=== PATIENT | female | born 1975 | race Caucasian/White ===

== ENCOUNTER → 2017-09-17 | Outpatient (CLI) | payer BC ==
--- NOTE | 2017-09-17 13:06 | KCIC ---
Bilateral digital screening mammograms: Reason for examination: Routine screening. History of breast reduction. Comparison is made to previous studies dated back to 05/18/2014. Interpretation was made with the benefit of CAD. The skin and nipples show no abnormalities. No abnormal axillary lymph nodes are seen. The breast parenchyma shows scattered fibroglandular density. (Breast density: Category B.) There continue to be postop changes from breast reduction was some patchy asymmetries again seen. There appears be some fat necrosis at the 2:00 position of the right breast anteriorly. There are no new dominant masses, suspicious calcifications or architectural distortions. A few scattered benign calcifications are present. Impression: Postoperative changes from breast reduction. No evidence of malignancy. Recommend routine screening. BI-RADS category 2: Benign "Our facility is accredited by the [employer] Mammography [employer]." This patient's information has been entered into a reminder system for the patient to be notified with the results of her examination and a target date for the next mammogram. Electronically signed by: Celia Degroot MD (09/17/2017 1:03 PM) [id number]
== END | disposition home or self-care (01) ==
LOC: KCIC MAMMO 08:02
PROVIDERS: ATTEND Obstetrics & Gynecology
DX: Z12.31 Encounter for screening mammogram for malignant neoplasm of breast (principal)
CPT/HCPCS: G0202; 77067

== ENCOUNTER → 2019-03-10 | Outpatient (CLI) | payer BC ==
--- NOTE | 2019-03-10 10:24 | KCIC ---
BILATERAL SCREENING MAMMOGRAM History: Routine screening. History of bilateral breast reduction 2014. Comparison: Bilateral mammogram 09/17/2017 and dating back to 2013. Technique: Routine bilateral digital mammogram views were obtained. Findings: Breast Tissue Density B : There are scattered areas of fibroglandular density. The parenchymal pattern is stable and compatible with the history of reduction mammoplasty. There are no dominant masses, suspicious microcalcifications, or architectural distortion. Interval evolution of fat necrosis right breast 1:00 position at anterior depth. Benign calcifications are noted bilaterally. IMPRESSION: No mammographic evidence of malignancy. Recommend routine screening. BI-RADS category 2: Benign findings. The images were reviewed with computer aided detection. Patient information is entered into the reminder system with a target due date for the next screening mammogram. Mammography is the most sensitive method for finding small breast cancers, but it does not detect them all and is not a substitute for careful clinical examination. A negative mammogram does not negate a clinically suspicious finding and should not result in delay in biopsying a clinically suspicious abnormality. "Our facility is accredited by the [employer] Mammography [employer]." Electronically signed by: Juan Estrada MD (03/10/2019 10:22 AM) [id number]
== END | disposition home or self-care (01) ==
LOC: KCIC MAMMO 07:38
PROVIDERS: ATTEND Obstetrics & Gynecology
DX: Z12.31 Encounter for screening mammogram for malignant neoplasm of breast (principal); N64.1 Fat necrosis of breast; N64.89 Other specified disorders of breast
CPT/HCPCS: 77067

== ENCOUNTER → 2020-03-27 | Outpatient (CLI) | payer BC ==
--- NOTE | 2020-03-27 12:50 | KCIC ---
Bilateral digital screening mammograms: Reason for examination: Routine screening. History of breast reduction. Comparison is made to previous studies dated back to 05/18/2014. Interpretation was made with the benefit of CAD. The skin and nipples show no abnormalities. No abnormal axillary lymph nodes are seen. The breast parenchyma shows scattered fibroglandular density. (Breast density: Category B.) There are postop changes from breast reduction. There is some nodularity laterally in both breasts but especially on the right which probably reflects postoperative surgical changes with some parenchymal scarring. There are no new masses, suspicious calcifications or architectural distortions. Benign calcification is again seen. Impression: Postoperative changes bilaterally from reduction surgery with some parenchymal nodularity posterior laterally especially on the right probably related to the breast reduction surgery. Follow-up with ultrasound can be performed for further evaluation. BI-RADS Category 0: Incomplete. Needs additional imaging evaluation. "Our facility is accredited by the [employer] Mammography Program." This patient's information has been entered into a reminder system for the patient to be notified with the results of her examination and a target date for the next mammogram. Electronically signed by: Celia Degroot MD (03/27/2020 12:47 PM) [id number]
== END | disposition home or self-care (01) ==
LOC: KCIC MAMMO 08:19
PROVIDERS: ATTEND Obstetrics & Gynecology
DX: Z12.31 Encounter for screening mammogram for malignant neoplasm of breast (principal); N64.89 Other specified disorders of breast
CPT/HCPCS: 77067

== ENCOUNTER → 2020-04-24 | Outpatient (CLI) | payer BC ==
--- NOTE | 2020-04-24 08:43 | KCIC ---
EXAM: Bilateral breast sonogram. HISTORY: 45-year-old female presents for evaluation of increasing nodularity within the upper outer quadrants of both breasts demonstrate on a mammogram dated 03/27/2020. TECHNIQUE: Sonographic imaging of both breasts targeted to the upper-outer quadrants and the retroareolar regions was performed. COMPARISON: Mammograms dated 03/27/2020 and 03/10/2019. FINDINGS: Sonographic imaging of the right breast demonstrates no suspicious finding. There is no suspicious right axillary lymph node. Sonographic imaging of the left breast demonstrates an island of fibrocystic changes at the 2:00 position 2 cm from the nipple. There is no suspicious finding. There is no suspicious left axillary lymph node. IMPRESSION: 1. Benign fibrocystic changes within the 2:00 position of the left breast. No suspicious sonographic lesion is seen within either breast or either axilla. This favors that nodularity on the recent mammogram is due to benign breast reduction mammoplasty changes. 2. BI-RADS Category 2: Benign finding(s). Annual mammography is recommended. Electronically signed by: Darlene Senior MD (04/24/2020 8:40 AM) [email or web address]
== END ==
LOC: KCIC US 07:54
PROVIDERS: ATTEND Obstetrics & Gynecology
DX: R92.2 Inconclusive mammogram (principal)
CPT/HCPCS: 76641